=== PATIENT | female | born 1985 | race Caucasian/White ===

== ENCOUNTER 2017-08-19 07:00 | Inpatient (IN) | payer BC ==
[2017-08-19] VITALS (52 sets, daily range): BP systolic 108–143; BP diastolic 55–85
[~2017-08-19] VITALS: Ht 170.2 cm; Wt 103.9 kg
[~2017-08-19 07:00] MED LIST: ACHYD1T PO; DCS100C PO; HYDR-3720 PO; HYDR-89 BC; IBP600T1 PO; IBP800T PO; Ibuprofen PO; PREN1TAB39 PO
[2017-08-19] MEDS ORDERED: OXYTOCIN/NORMAL SALINE 500 ML IV ONE (07:21)
[2017-08-19] MEDS ORDERED: D5 LR IV SOLUTION 1,000 ML IV ONE (07:21)
--- OUTSIDE RECORDS SUMMARY | 2017-08-19 07:37 | XMS REPORT | Continuity of Care Document ---
Author Author [facility] Organization [facility] Address Unknown Phone Unavailable Allergies Medications Problems Procedures Results Encounters ACCT No. Visit Date/Time Discharge Status Pt. Type Provider Facility Loc./Unit Complaint [id number] 07/04/2014 13:17:00 2013 13:40:00 DIS Inpatient
[2017-08-19] MEDS ORDERED: OXYTOCIN/NORMAL SALINE 500 ML IV SCH ×2 (08:03→08:04)
--- NOTE | 2017-08-19 08:10 | History & Physical ---
History and Physical Date Seen by Provider: Aug 19, 2017 Time Seen by Provider: 08:08 this patient is a 32-year-old white female who initially presented with a viable twin . By 14 to 16 weeks gestation that had been the demise of one of the twins. has been followed closely. thus far has been uncomplicated. Patient is admitted now for induction of labor due to the tension twin syndrome. She denies rupture membranes or bleeding. Her GBS culture was negative. Allergies are none Medications are vitamins Medical social and surgical history are per the antepartum record HEENT exam is normal Neck is supple no lymphadenopathy no thyromegaly Abdomen is gravid soft nontender nondistended Extremities show no clubbing or cyanosis. There is no Homans sign. Pelvic exam is pending Assessment and plan 38-5/7 weeks' gestation with vanishing twin syndrome admitted now for Pitocin induction of labor. Anticipation is for vaginal delivery. 38+ week gestation with vanishing twin syndrome Allergies and Home Medications Allergies Coded Allergies: No Known Drug Allergies (Unverified , 07/29/10) Home Medications Docusate Sodium 100 Mg Capsule, 1 CAP PO DAILY PRN for CONSTIPATION, #60 Prescribed by: MARIYA JETER on 07/06/14 0733 Hydrocodone Bit/Acetaminophen 1 Tab Tablet, 1-2 TAB PO Every 3 hours PRN, ( Reported) Hydrocodone Bit/Acetaminophen 1 Each Tablet, 1-2 TAB PO Q3H PRN for PAIN, #60 Prescribed by: MARIYA JETER on 07/06/14 0733 Ibuprofen 800 Mg Tab, 800 MG PO Q6H PRN, (Reported) Vits W-Ca,Fe,Fa(<1MG) 1 Each Tablet, 1 EACH PO DAILY, (Reported) [Ibuprofen] 800 MG TAB, 800 MG PO Q6H, #60 Prescribed by: MARIYA JETER on 07/06/14 0733 MARIYA GIFFORD MD Aug 19, 2017 8:09 am
[2017-08-19] MEDS: D5 LR IV SOLUTION 1,000 ML IV SCH ×2 (08:12→14:32)
[2017-08-19] MEDS ORDERED: oxyCODONE/APAP 10/325MG (PERCOCET 10) TABLET PO PRN (08:15)
[2017-08-19] MEDS ORDERED: BENZOCAINE/MENTHOL (DERMOPLAST) 56 ML CAN TP PRN (08:15)
[2017-08-19] MEDS ORDERED: TETANUS,DIPTH,PERTUSS P/F (BOOSTRIX) 0.5 ML VIAL IM ONE (08:15)
[2017-08-19 08:40] LABS: BASOPHILS % (AUTO) 0 % (0-10); EOSINOPHILS # (AUTO) 0.1 10^3/uL (0.0-0.3); EOSINOPHILS % (AUTO) 1 % (0-10); LYMPHOCYTES # (AUTO) 1.4 X 10^3 (1.0-4.0); LYMPHOCYTES % (AUTO) 11 % (12-44); MEAN CORPUSCULAR HEMOGLOBIN 29 PG (25-34); MEAN CORPUSCULAR HGB CONC 34 G/DL (32-36); MEAN CORPUSCULAR VOLUME 86 FL (80-99); MEAN PLATELET VOLUME 9.4 FL (7.4-10.4); MONOCYTES # (AUTO) 0.7 X 10^3 (0.0-1.0); MONOCYTES % (AUTO) 5 % (0-12); NEUTROPHILS # (AUTO) 10.1 X 10^3 (1.8-7.8); NEUTROPHILS % (AUTO) 83 % (42-75); PLATELET COUNT 294 10^3/uL (130-400); RED BLOOD COUNT 3.98 10^6/uL (4.35-5.85); RED CELL DISTRIBUTION WIDTH 13.3 % (10.0-14.5); WHITE BLOOD COUNT 12.2 10^3/uL (4.3-11.0)
[2017-08-19 08:57] LABS: BILIRUBIN,URINE NEGATIVE (NEGATIVE); KETONES,URINE NEGATIVE (NEGATIVE); LEUKOCYTE ESTERASE ,URINE NEGATIVE (NEGATIVE); NITRITE,URINE NEGATIVE (NEGATIVE); PH,URINE 7 (5-9); PROTEIN,URINE NEGATIVE (NEGATIVE); UROBILINOGEN,URINE NORMAL (NORMAL)
[2017-08-19 09:16] LABS: WBC,URINE RARE /HPF
[2017-08-19] MEDS ORDERED: LACTATED RINGERS 1,000 ML IV ONE ×2 (10:37→11:33)
[2017-08-19] MEDS ORDERED: SUFENTA 0.6MCG/ML BUPIVA 0.125 100 ML ONE (10:38)
[2017-08-19] MEDS ORDERED: BUPIVACAINE 0.25% 30 ML (SENSORCAINE) VIAL ONE (10:58)
[2017-08-19] MEDS ORDERED: NALOXONE 0.4 MG/ML 1 ML (NARCAN) VIAL IV PRN (11:45)
[2017-08-19] MEDS ORDERED: ONDANSETRON 4 MG/2 ML (SDV) Z0FRAN IV PRN (11:45)
[2017-08-19] MEDS ORDERED: EPIDURAL (SUFENTA 0.6MCG/ML BUPIVA 0.125%) 100 ML BAG EPI SCH (11:45)
[2017-08-19] MEDS: KETOROLAC 30 MG/ML VIAL IV SCH (19:00)
[2017-08-20] MEDS: KETOROLAC 30 MG/ML VIAL IV SCH (00:48)
[2017-08-20 05:30] VITALS: BP 119/59
[2017-08-20] MEDS: IBUPROFEN 800 MG (MOTRIN) TAB PO SCH ×4 (05:40→23:55)
--- NOTE | 2017-08-20 06:52 | Progress Note-Standard ---
Standard Progress Note Progress Notes/Assess & Plan Date Seen by Provider: Aug 20, 2017 Time Seen by Provider: 06:51 Progress/Assessment & Plan patient is without complaint. She is ambulating, voiding, tolerating fairly well, has good pain control. Patient denies headache, denies shortness breath, denies nausea vomiting, denies chest pain. Vital Signs Date Time Temp Pulse Resp B/P (MAP) Pulse Ox O2 Delivery O2 Flow Rate FiO2 08/20/17 05:30 97.6 79 18 119/59 08/19/17 22:30 97.4 73 18 113/58 08/19/17 18:45 85 18 118/70 Room Air 08/19/17 18:30 91 18 134/61 Room Air 08/19/17 18:15 86 18 126/58 Room Air 08/19/17 18:00 82 18 122/59 Room Air 08/19/17 17:45 73 18 118/58 Room Air 08/19/17 17:30 69 18 125/74 Room Air 08/19/17 17:15 68 18 120/60 Room Air 08/19/17 17:00 74 18 131/63 Room Air 08/19/17 16:45 97.3 78 18 129/60 Room Air 08/19/17 16:30 81 18 136/85 Room Air 08/19/17 16:15 85 18 118/61 99 Room Air 08/19/17 16:00 72 18 132/66 98 Room Air 08/19/17 15:45 72 18 124/58 97 Room Air 08/19/17 15:30 72 18 122/57 97 Room Air 08/19/17 15:15 80 18 132/60 96 Room Air 08/19/17 15:00 79 18 123/62 96 Room Air 08/19/17 14:45 73 18 121/60 96 Room Air 08/19/17 14:30 82 18 124/55 99 Room Air 08/19/17 14:26 96.5 08/19/17 14:15 78 18 119/57 100 Room Air 08/19/17 14:00 78 18 119/57 100 Room Air 08/19/17 13:45 64 18 108/56 100 Room Air 08/19/17 13:30 79 18 116/58 100 Room Air 08/19/17 13:15 80 18 114/57 100 Room Air 08/19/17 13:00 75 18 123/60 99 Room Air 08/19/17 12:45 75 18 123/60 99 Room Air 08/19/17 12:30 82 18 117/55 99 Room Air 08/19/17 12:15 79 18 116/58 98 Room Air 08/19/17 12:00 80 18 128/60 98 Room Air 08/19/17 11:55 104 18 123/57 98 Room Air 08/19/17 11:50 92 18 120/57 97 Room Air 08/19/17 11:45 85 18 134/64 98 Room Air 08/19/17 11:40 100 18 128/60 96 Room Air 08/19/17 11:35 88 18 143/64 97 Room Air 08/19/17 11:30 97.0 91 18 130/61 96 Room Air 08/19/17 11:22 70 18 114/58 98 Room Air 08/19/17 11:18 83 18 130/63 98 Room Air 08/19/17 11:15 75 18 129/63 99 Room Air 08/19/17 11:12 79 18 134/70 100 Room Air 08/19/17 11:09 72 18 129/67 100 Room Air 08/19/17 10:55 76 18 119/59 Room Air 08/19/17 10:40 76 18 119/59 Room Air 08/19/17 10:25 82 18 118/60 Room Air 08/19/17 10:10 97.0 72 18 119/58 Room Air 08/19/17 09:55 76 18 121/57 Room Air 08/19/17 09:40 77 18 108/56 Room Air 08/19/17 09:25 81 18 108/56 Room Air 08/19/17 09:10 75 18 118/64 Room Air 08/19/17 08:55 76 18 116/59 Room Air 08/19/17 08:40 97.1 81 18 118/58 Room Air 08/19/17 08:25 83 18 123/61 Room Air 08/19/17 08:15 86 18 137/69 Room Air Vital signs are stable. Patient is afebrile. Fundus is firm below the umbilicus nontender. Extremities show no clubbing cyanosis. There is no Homans sign. There is some pretibial pitting edemaThat is normal. Assessment and plan was day number 1 status post term spontaneous vaginal delivery and complicated by vanishing twin syndrome. Patient doing well and will receive routine convalescence care today and discharge home at her request today or tomorrow Final Diagnosis term spontaneous vaginal delivery MARIYA GIFFORD MD Aug 20, 2017 6:52 am
[2017-08-20] MEDS ORDERED: IBUP-1780 PO (06:53)
[2017-08-20] MEDS ORDERED: DOCU100C37 PO (06:53)
[2017-08-20] MEDS ORDERED: OXYC-465 PO (06:53)
--- NOTE | 2017-08-20 06:55 | Discharge Instructions ---
Discharge Instructions Discharge Medications New, Converted or Re-Newed RX: RX on Chart Patient Instructions Patient Instructions: as directed Return to The Hospital For: as directed Activity & Diet Discharge Diet: No Restrictions Activity as Tolerated: No Orders-Post D/C & Referrals Follow Up Appt: Call to make follow up appt. for patient in 4 weeks. Activity Per routine post vaginal delivery instructions. Diet as tolerated Patient may shower or tub bathe as desired. MARIYA GIFFORD MD Aug 20, 2017 6:55 am
[2017-08-20 09:00] VITALS: BP 125/71
--- NOTE | 2017-08-20 09:17 | Anesthesia-Regional Post-Op ---
Regional Patient Condition Mental Status: Alert, Oriented x3 Circulation: Same as Pre-Op Headache: Absent Sensation: Full Recovery Motor Block: Absent Post Op Complications Complications None Follow Up Care/Instructions Patient Instructions None needed. Anesthesia/Patient Condition Patient is doing well, no complaints, stable vital signs, no apparent adverse anesthesia problems. No complications reported per nursing. OFE ROLAND CRNA Aug 20, 2017 09:17
[2017-08-20] MEDS: DOCUSATE SODIUM 100 MG (COLACE) CAP PO SCH ×2 (09:19→20:10)
[2017-08-20] MEDS ORDERED: INFLUENZA TRIvalent 2017-2018 0.5 ML/45 MCG SYR IM ONE (10:30)
[2017-08-20 12:30] VITALS: BP 126/68
[2017-08-20 17:00] VITALS: BP 122/67
[2017-08-20 23:55] VITALS: BP 138/65
[2017-08-21 05:15] VITALS: BP 129/68
[2017-08-21] MEDS: IBUPROFEN 800 MG (MOTRIN) TAB PO SCH (05:27)
--- NOTE | 2017-08-21 08:10 | Progress Note-Standard ---
Standard Progress Note Progress Notes/Assess & Plan Date Seen by Provider: Aug 21, 2017 Time Seen by Provider: 07:55 Progress/Assessment & Plan Day # 2 Subjective: Patient is without complaints. Ambulating, voiding. Tolerating a regular diet without nausea or vomiting. Normal lochia. Pain is well controlled with oral pain medications. Objective: Vital Sign - Last 24 Hours 08/20/17 08/20/17 08/20/17 08/20/17 09:00 12:30 17:00 23:55 Temp 98.1 98.6 98.8 96.4 Pulse 90 79 95 89 Resp 18 18 18 18 B/P (MAP) 125/71 126/68 122/67 138/65 Pulse Ox 97 98 97 O2 Delivery Room Air Room Air Room Air Room Air 08/21/17 05:15 Temp 97.4 Pulse 96 Resp 16 B/P (MAP) 129/68 O2 Delivery Room Air Physical Exam: General - Alert and oriented, no apparent distress Abdomen - Soft, appropriately tender to palpation, non-distended, fundus firm at umbilicus Extremities - no edema, negative Modesta's bilaterally Assessment: 1. post- day # 2, status post vaginal delivery. Recovering well, hemodynamically stable Plan: Routine care. Encourage breast feeding. Encourage ambulation. Ferrous sulfate supplementation. Plan for discharge today DALTON FRANKEL DO Aug 21, 2017 8:10 am
[2017-08-21 08:21] VITALS: BP 122/71
[2017-08-21] MEDS ORDERED: TETANUS,DIPTH,PERTUSS P/F (BOOSTRIX) 0.5 ML VIAL IM ONE (10:08)
[2017-08-21] MEDS: DOCUSATE SODIUM 100 MG (COLACE) CAP PO SCH (10:17)
--- NOTE | 2017-08-21 10:54 | OPERATIVE REPORT ---
DATE OF SERVICE: 08/19/2017 DATE OF DELIVERY: 08/19/2017. The patient delivered by term spontaneous vaginal delivery a viable male with Apgars of 8 and 9 at 1 and 5 minutes respectively, weight of 7 pounds 7 ounces, time of 1634. The was delivered over an intact perineum under epidural analgesia. The infant had a double nuchal cord that was easily released. The delivery actually occurred during a contraction, mom did push a bit to deliver the anterior shoulder, but then the delivery was completed with the expulsive effort of the uterus. The was bulb suctioned on delivery of the head and again on completion of delivery. The umbilical cord when pulseless was doubly clamped, father cut the cord and the baby was passed to mom's abdomen. The cord was pulseless fairly promptly after delivery. The infant had excellent tone and reflexes, vigorous cry, was quickly pink and moved all extremities. The cervix, vagina, rectum and perineum were examined after the placenta delivered spontaneously [place]. Cord bloods were obtained. The canal was completely intact. Estimated blood loss for the delivery was around 200 mL. The sponge and needle counts were correct. The patient remained in the LDR for recovery. The baby remained with the mom. Job ID: [id number] DocumentID: [id number] Dictated Date: 08/19/2017 16:45:08 Mobile Sales Consultant Date: 08/19/2017 23:02:16 Dictated By: MARIYA GIFFORD MD
== END 2017-08-21 11:50 | disposition home or self-care (01) | DRG 775 ==
LOC: LDRP 07:12
PROVIDERS: ADMIT Obstetrics & Gynecology; ATTEND Obstetrics & Gynecology
PROC: 10E0XZZ Delivery of Products of Conception, External Approach (ICD-10-PCS; principal; 2017-08-19)
PROC: 3E033VJ Introduction of Other Hormone into Peripheral Vein, Percutaneous Approach (ICD-10-PCS; 2017-08-19)
DX: O31.23X0 Continuing pregnancy after intrauterine death of one fetus or more, third trimester, not applicable or unspecified (principal); O69.81X0 Labor and delivery complicated by cord around neck, without compression, not applicable or unspecified; Z37.3 Twins, one liveborn and one stillborn; Z23 Encounter for immunization; Z3A.38 38 weeks gestation of pregnancy
CPT/HCPCS: 36415; 81000; 85025; 86850; 86900; 86901; 90715

== ENCOUNTER 2021-06-27 07:00 | Inpatient (IN) | payer BC, OTHER ==
[~2021-06-27] VITALS: Ht 170.2 cm; Wt 107.3 kg
[2021-06-27] VITALS (55 sets, daily range): BP systolic 94–149; BP diastolic 50–81
[~2021-06-27 07:00] MED LIST changes: +DOCU100C37 PO; +IBUP-1780 PO; +OXYC-556 PO
[2021-06-27] MEDS ORDERED: OXYTOCIN PRE-MIX DRIP 500 ML IV SCH ×2 (07:30→16:30)
[2021-06-27] MEDS ORDERED: DOCU100C37 PO (07:32)
[2021-06-27] MEDS ORDERED: IBUP-1780 PO (07:32)
[2021-06-27] MEDS ORDERED: OXYC-556 PO (07:32)
--- NOTE | 2021-06-27 07:33 | Discharge Inst-Surgical ---
Discharge Inst-Surgical Depart Medication/Instructions New, Converted or Re-Newed RX: Transmitted to Pharmacy Consults/Follow Up Patient Instructions: As directed Orders & Referrals Follow Up Appt: Call to make follow up appt. for patient in 4 to 6 weeks. Activity Per routine post vaginal delivery instructions Diet as tolerated Patient may shower or tub bathe as desired. Activity Activity as Tolerated: No Diet Discharge Diet: No Restrictions MARIYA GIFFORD MD Jun 27, 2021 07:33
[2021-06-27 07:39] LABS: BASOPHILS % (AUTO) 0 % (0-10); EOSINOPHILS # (AUTO) 0.1 10^3/uL (0.0-0.3); EOSINOPHILS % (AUTO) 1 % (0-10); HEMATOCRIT 37 % (35-52); HEMOGLOBIN 12.7 g/dL (11.5-16.0); LYMPHOCYTES # (AUTO) 1.3 10^3/uL (1.0-4.0); LYMPHOCYTES % (AUTO) 13 % (12-44); MEAN CORPUSCULAR HEMOGLOBIN 30 pg (25-34); MEAN CORPUSCULAR HGB CONC 34 g/dL (32-36); MEAN CORPUSCULAR VOLUME 87 fL (80-99); MEAN PLATELET VOLUME 9.8 fL (9.0-12.2); MONOCYTES # (AUTO) 0.5 10^3/uL (0.0-1.0); MONOCYTES % (AUTO) 5 % (0-12); NEUTROPHILS # (AUTO) 7.9 10^3/uL (1.8-7.8); NEUTROPHILS % (AUTO) 81 % (42-75); PLATELET COUNT 335 10^3/uL (130-400); WHITE BLOOD COUNT 9.8 10^3/uL (4.3-11.0)
[2021-06-27] MEDS: D5 LR IV SOLUTION 1,000 ML IV SCH ×2 (07:48→13:00)
[2021-06-27] MEDS ORDERED: LACTATED RINGERS 1,000 ML IV ONE ×2 (08:40→19:45)
[2021-06-27] MEDS ORDERED: fentaNYL 2 mcg/ml BUPIVA 0.125 100 ML ONE (08:40)
[2021-06-27] MEDS ORDERED: LEVO137T2 (08:54)
[2021-06-27] MEDS ORDERED: MEASLES,MUMPS,RUBELLA 1 EA INJ SC ONE (16:30)
[2021-06-27] MEDS ORDERED: ONDANSETRON 4 MG/2 ML (SDV) Z0FRAN IVP PRN (16:30)
[2021-06-27] MEDS ORDERED: BENZOCAINE/MENTHOL (DERMOPLAST) 56 ML CAN TP PRN (16:30)
[2021-06-27] MEDS ORDERED: TETANUS,DIPTH,PERTUSS P/F (BOOSTRIX) 0.5 ML VIAL IM ONE (16:30)
[2021-06-27] MEDS ORDERED: oxyCODONE/APAP 5/325MG (PERCOCET 5) TABLET PO PRN (16:30)
--- NOTE | 2021-06-27 18:55 | OPERATIVE REPORT ---
DATE OF SERVICE: 06/27/2021 DELIVERY NOTE The patient delivered by term spontaneous vaginal delivery, a viable male with Apgars of 8 and 9 at 1 and 5 minutes respectively, weight of 7 pounds 7 ounces, time of 14:58 hours and a cord blood pH is pending. The was bulb suctioned on delivery of the head and again on completion of delivery. A single nuchal cord was easily released. The umbilical cord was doubly clamped, the father cut the cord, and the baby was passed to mother's abdomen. Cord bloods were obtained. The placenta delivered promptly spontaneously [place]. It was normal with a 3-vessel cord. The cervix, vagina, rectum, and perineum were examined and found to be intact. Sponge and needle counts were correct on completion of the delivery. Blood loss was fairly minimal, well less than 100 mL. The patient tolerated the delivery well and remained in the LDR for recovery. The baby remained with the mother. Job ID: [id number] DocumentID: [id number] Dictated Date: 06/27/2021 15:15:34 Marshmallow Maker Date: 06/27/2021 18:54:42 Dictated By: MARIYA GIFFORD MD
[2021-06-27] MEDS ORDERED: NALOXONE 0.4 MG/ML 1 ML (NARCAN) VIAL IV PRN (19:45)
[2021-06-27] MEDS ORDERED: fentaNYL 2 mcg/ml BUPIVA 0.125 100 ML IV SCH (19:45)
[2021-06-27] MEDS ORDERED: CATHETER FLUSH 10 ML SYR IV PRN (19:45)
[2021-06-27] MEDS: KETOROLAC 30 MG/ML VIAL IVP SCH (21:57)
[2021-06-27] MEDS: DOCUSATE SODIUM 100 MG (COLACE) CAP PO SCH (21:59)
[2021-06-28] MEDS: IBUPROFEN 800 MG (MOTRIN) TAB PO SCH ×2 (03:40→09:17)
[2021-06-28 03:50] VITALS: BP 119/80
[2021-06-28] MEDS ORDERED: IBUPROFEN 800 MG (MOTRIN) TAB PO ONE ×2 (03:50→09:06)
[2021-06-28 08:15] VITALS: BP 135/63
[2021-06-28] MEDS: DOCUSATE SODIUM 100 MG (COLACE) CAP PO SCH (09:17)
--- NOTE | 2021-06-28 10:07 | Progress Note ---
Standard Progress Note Progress Notes/Assess & Plan Date Seen by a Provider: Jun 28, 2021 Time Seen by a Provider: 10:06 Progress/Assessment & Plan This patient is without complaint. She is ambulating, voiding, tolerating oral intake well has good pain control. Patient is requesting discharge home. Vital Signs Date Time Temp Pulse Resp B/P (MAP) Pulse Ox O2 Delivery O2 Flow Rate FiO2 06/28/21 03:50 36.1 88 18 119/80 (93) Room Air 06/27/21 22:00 36.7 76 18 127/68 (87) Room Air 06/27/21 17:23 86 18 130/64 (86) Room Air 06/27/21 17:08 71 18 116/64 (81) Room Air 06/27/21 16:52 36.5 81 18 121/68 (85) Room Air 06/27/21 16:38 81 18 124/62 (82) Room Air 06/27/21 16:23 67 18 131/67 (88) Room Air 06/27/21 16:09 61 18 123/59 (80) Room Air 06/27/21 15:53 61 18 116/56 (76) Room Air 06/27/21 15:38 66 18 127/66 (86) Room Air 06/27/21 15:23 72 18 119/57 (77) Room Air 06/27/21 15:08 36.5 69 18 132/58 (82) 100 Room Air 06/27/21 14:55 81 18 133/81 (98) 100 Room Air 06/27/21 14:44 36.5 76 18 128/74 (92) 100 Room Air 06/27/21 14:23 87 18 108/58 (75) 100 Room Air 06/27/21 14:10 77 18 108/55 (72) 100 Room Air 06/27/21 13:55 80 18 116/65 (82) 100 Room Air 06/27/21 13:38 59 18 102/56 (71) 100 Room Air 06/27/21 13:24 59 18 100/52 (68) 100 Room Air 06/27/21 13:09 36.5 63 18 114/59 (77) 100 Room Air 06/27/21 12:52 60 18 116/64 (81) 100 Room Air 06/27/21 12:38 62 18 110/58 (75) 100 Room Air 06/27/21 12:25 55 18 111/58 (75) 100 Room Air 06/27/21 12:10 61 18 115/60 (78) 100 Room Air 06/27/21 11:53 67 18 122/57 (78) 100 Room Air 06/27/21 11:50 66 18 128/58 (81) 100 Room Air 06/27/21 11:44 36.4 06/27/21 11:44 64 18 104/56 (72) 100 Room Air 06/27/21 11:33 96 18 115/66 (82) 100 Room Air 06/27/21 11:29 66 18 110/58 (75) 100 Room Air 06/27/21 11:24 74 18 111/59 (76) 100 Room Air 06/27/21 11:20 73 18 94/50 (65) 98 Room Air 06/27/21 11:15 71 18 101/51 (68) 100 Room Air 06/27/21 11:07 76 18 125/59 (81) Room Air 06/27/21 11:05 36.7 79 18 121/60 (80) 98 Room Air 06/27/21 11:00 77 18 124/67 (86) 97 Room Air 06/27/21 10:52 78 18 119/65 (83) 97 Room Air 06/27/21 10:49 86 18 110/55 (73) 99 Room Air 06/27/21 10:46 71 18 123/58 (79) Room Air 06/27/21 10:43 79 18 114/57 (76) 99 Room Air 06/27/21 10:40 96 18 125/67 (86) 99 Room Air 06/27/21 10:36 84 18 119/73 (88) 99 Room Air 06/27/21 10:33 69 18 120/70 (87) 98 Room Air 06/27/21 10:30 70 18 126/74 (91) Room Air 06/27/21 10:27 64 18 149/79 (102) 100 Room Air 06/27/21 10:25 79 18 118/68 (85) 98 Room Air Vital signs are stable. Patient is afebrile. Fundus is firm below the umbilicus nontender. Extremities show no clubbing cyanosis. There is no Homans' sign. Assessment and plan day #1 status post term spontaneous vaginal delivery doing well. Plan is for discharge home with follow-up in clinic Final Diagnosis 39-week spontaneous vaginal MARIYA GIFFORD MD Jun 28, 2021 10:07
[2021-06-28] MEDS: KETOROLAC 30 MG/ML VIAL IVP SCH (11:32)
[2021-06-28 16:57] VITALS: BP 129/64
== END 2021-06-28 17:30 | disposition home or self-care (01) | DRG 807 ==
LOC: LDRP 07:03
PROVIDERS: ADMIT Obstetrics & Gynecology; ATTEND Obstetrics & Gynecology
PROC: 10E0XZZ Delivery of Products of Conception, External Approach (ICD-10-PCS; principal; 2021-06-27)
DX: O69.81X0 Labor and delivery complicated by cord around neck, without compression, not applicable or unspecified (principal); Z37.0 Single live birth; Z3A.39 39 weeks gestation of pregnancy
CPT/HCPCS: 36415; 85025; 86850; 86900; 86901